=== PATIENT | male | born 1985 | race Caucasian/White ===

== ENCOUNTER → 2019-07-01 | Outpatient (CLI) | payer OTHER ==
[~2019-07-01] MED LIST: AMOXICILLIN500 MG PO; ATIVAN PO; ATIVAN1 MG PO; BACTRIM DS 8001 TA1 PO; CIPROFLOXACIN500 MG PO; CITALOPRAM20 MG PO; DICLOFENAC POTA50 MG PO; FLEXERIL5 MG PO; FLONASE 0.05% 121 EA NAS; LITHIUM CARBON300 MG PO; MOTRIN800 MG PO; PHENERGAN W/DM120 ML PO; PREDNICOT10 MG PO; PROAIR HFA0.09 MG/AC INH; ULTRAM50 MG PO; VISTARIL50 MG PO
== END | disposition home or self-care (01) ==
LOC: CARD 23:24
DX: Z51.81 Encounter for therapeutic drug level monitoring (principal); Z79.899 Other long term (current) drug therapy

== ENCOUNTER 2019-07-27 21:11 | Emergency (ER) | payer OTHER ==
[~2019-07-27] VITALS: Ht 187.9 cm; Wt 68.0 kg
[2019-07-27] MEDS ORDERED: AMOXICILLIN500 M2 PO (22:04)
== END 2019-07-27 22:24 | disposition home or self-care (01) ==
LOC: ED 21:11
DX: J02.9 Acute pharyngitis, unspecified (principal)